=== PATIENT | female | born 1955 | race Caucasian/White ===

== ENCOUNTER 2024-07-01 22:03 | Observation (INO) | payer MEDICARE, OTHER ==
[~2024-07-01 22:03] MED LIST: ASPIRIN 325 MG TAB ONE; ASPIRIN 81 MG ONE; HEPARIN SODIUM,PORCINE 10,000 UNIT/ML 1 ML VIAL ONE; LIDOCAINE 1% INJ 10MG/ML (20 ML MDV) ONE; SODIUM CHLORIDE 0.9% 1,000 ML BAG ONE; SODIUM CHLORIDE 0.9% 100 ML BAG IV ONE; VERAPAMIL 2.5 MG/ML 4 ML VIAL ONE
[2024-07-02] MEDS ORDERED: ATORVASTATIN 80 MG TAB ONE (08:05)
[2024-07-02] MEDS ORDERED: FAMOTIDINE 20 MG TAB ONE (08:05)
[2024-07-02] MEDS ORDERED: ASPIRIN 81 MG ONE (08:05)
[2024-07-02] MEDS ORDERED: HEPARIN SODIUM 1,000 UN/ML (10ML VL) ONE ×2 (10:50→12:31)
[2024-07-02] MEDS ORDERED: HEPARIN SOD,PORK IN 0.45% NACL 250 ML IV ONE (10:51)
[2024-07-02] MEDS ORDERED: SODIUM CHLORIDE 0.9% 1,000 ML BAG ONE (12:00)
[2024-07-02] MEDS ORDERED: fentaNYL (PF) 50 MCG/ML 2 ML AMP ONE (12:31)
[2024-07-02] MEDS ORDERED: MIDAZOLAM 2 MG/2 ML VIAL ONE (12:31)
[2024-07-02] MEDS: IOPAMIDOL-370 100ML BTL INJ ONE (12:57)
[2024-07-03] MEDS ORDERED: ASPIRIN 81 MG ONE (09:25)
[2024-07-03] MEDS ORDERED: FAMOTIDINE 20 MG TAB ONE (09:25)
[2024-07-03] MEDS ORDERED: ATORVASTATIN 80 MG TAB ONE (09:25)
--- NOTE | 2024-07-28 08:11 | XR ---
EXAMINATION TYPE: XR chest 2V DATE OF EXAM: 07/01/2024 7:16 PM CLINICAL INDICATION: Abnormal labs. Site ID [id number] Patient Ana Zaidi ID [id number] COMPARISON: No comparisons are available due to PACS downtime. TECHNIQUE: XR chest 2V Frontal and lateral views of the chest. FINDINGS: Lungs/Pleura: There is no evidence of pleural effusion, focal consolidation, or pneumothorax. Pulmonary vascularity: Unremarkable. Heart/mediastinum: Cardiomediastinal silhouette is unremarkable. Musculoskeletal: No acute osseous pathology. IMPRESSION: No acute cardiopulmonary disease/process.
--- NOTE | 2024-08-02 12:15 | CA ---
Transthoracic Echo Report Name: Ana Zaidi Age: 69 Gender: F : 1955 Exam Date: 07/02/2024 13:46 Exam Location: [facility] Ht (in): 67 Wt (lb): 117 Ordering Physician: Attending/Referring Phys: Electrical Estimator Elinor Bruno RDCS Procedure CPT: Indications: Cardiac Hx: Technical Quality: Good Contrast 1: Total Dose (mL): Contrast 2: Total Dose (mL): MEASUREMENTS (Male / Female) Normal Values 2D ECHO LV Diastolic Diameter PLAX 4.6 cm 4.2 - 5.9 / 3.9 - 5.3 cm LV Systolic Diameter PLAX 2.8 cm IVS Diastolic Thickness 1.0 cm 0.6 - 1.0 / 0.6 - 0.9 cm LVPW Diastolic Thickness 1.1 cm 0.6 - 1.0 / 0.6 - 0.9 cm LV Relative Wall Thickness 0.5 LVOT Diameter 1.9 cm LV Diastolic Volume MOD BP 99.8 cm??? 67 - 155 / 56 - 104 cm??? LV Systolic Volume MOD BP 41.6 cm??? 22 - 58 / 19 - 49 cm??? LV Ejection Fraction MOD BP 58.4 % >= 55 % LV Cardiac Index MOD BP 2479.1 cm???/min???m??? LV Diastolic Volume MOD 4C 101.1 cm??? LV Systolic Volume MOD 4C 43.4 cm??? LV Ejection Fraction MOD 4C 57.1 % LV Cardiac Index MOD 4C 2457.8 cm???/min???m??? LV Diastolic Length 4C 8.1 cm LV Systolic Length 4C 6.7 cm LV Diastolic Volume MOD 2C 94.3 cm??? LV Systolic Volume MOD 2C 39.5 cm??? LV Ejection Fraction MOD 2C 58.1 % LV Cardiac Index MOD 2C 2332.6 cm???/min???m??? LV Diastolic Length 2C 7.9 cm LV Systolic Length 2C 6.8 cm LA Volume 37.6 cm??? 18 - 58 / 22 - 52 cm??? LA Volume Index 23.9 cm???/m??? 16 - 28 cm???/m??? Ascending Aorta Diameter 2.9 cm DOPPLER AV Peak Velocity 134.5 cm/s AV Peak Gradient 7.2 mmHg AV Mean Velocity 102.8 cm/s AV Mean Gradient 4.5 mmHg AV Velocity Time Integral 32.3 cm LVOT Peak Velocity 127.2 cm/s LVOT Peak Gradient 6.5 mmHg LVOT Velocity Time Integral 28.3 cm LVOT Stroke Volume 82.5 cm??? LVOT Stroke Volume Index 51.2 ml/m??? LVOT Cardiac Index 3512.5 cm???/min???m??? AV Area Cont Eq vti 2.6 cm??? AV Area Cont Eq pk 2.8 cm??? MV Area PHT 5.8 cm??? Mitral E Point Velocity 63.8 cm/s Mitral A Point Velocity 58.5 cm/s Mitral E to A Ratio 1.1 MV Deceleration Time 131.7 ms TR Peak Velocity 245.5 cm/s TR Peak Gradient 24.1 mmHg Right Atrial Pressure 15.0 mmHg Pulmonary Artery Systolic Pressu 39.1 mmHg Right Ventricular Systolic Press 39.1 mmHg PV Peak Velocity 89.0 cm/s PV Peak Gradient 3.2 mmHg FINDINGS Left Ventricle Left ventricular ejection fraction is estimated at 45-50 %. Mildly increased posterior wall thickness. Left ventricular cavity size normal. Apical hypokinesis. Right Ventricle Mild right ventricular dilatation with normal function. Mild pulmonary hypertension. Right Atrium Normal right atrial size. Left Atrium Normal left atrial size. Mitral Valve Structurally normal mitral valve. No evidence for mitral valve prolapse. No mitral stenosis. Trace mitral regurgitation. Aortic Valve Trileaflet aortic valve. No aortic valve stenosis or regurgitation. Tricuspid Valve Structurally normal tricuspid valve. No tricuspid stenosis. Mild tricuspid regurgitation. Pulmonic Valve Structurally normal pulmonic valve. No pulmonic stenosis. Trace pulmonic regurgitation. Pericardium No pericardial effusion. Aorta Normal size aortic root and proximal ascending aorta. CONCLUSIONS Left ventricular ejection fraction 45-50% with apical hypokinesis RVSP 39 Trace mitral regurgitation Mild tricuspid regurgitation Previewed by: Dr. David Hackett DO (Electronically Signed) Final Date: 02 July 2024 18:04
== END 2024-07-03 17:15 | disposition home or self-care (01) ==
LOC: INTOOBSV 22:03 → 3NCARDOBS 22:03 → UNDODISIN 07-03 17:35
PROVIDERS: ADMIT Internal Medicine; ATTEND Internal Medicine
DX: R07.89 Other chest pain (principal); R79.89 Other specified abnormal findings of blood chemistry; I10 Essential (primary) hypertension; E78.5 Hyperlipidemia, unspecified; R19.7 Diarrhea, unspecified; Z79.899 Other long term (current) drug therapy; Z87.891 Personal history of nicotine dependence
CPT/HCPCS: 71046; 93005; 93306; 93458; 99285